=== PATIENT | female | born 1990 | race Two or more races ===

== ENCOUNTER 2025-04-09 08:00 | Emergency (ER) | payer OTHER ==
[~2025-04-09] VITALS: Ht 162.6 cm; Wt 65.8 kg
[2025-04-09] MEDS ORDERED: ESTRADIOL1 EAC1 TD (08:30)
[2025-04-09] MEDS ORDERED: DEXTROAMP-AMPHE30 MG PO (08:30)
[2025-04-09] MEDS ORDERED: RINGERS SOLUTION,LACTATED 1,000 ML IV STA (09:10)
[2025-04-09] MEDS ORDERED: PIPERACILLIN/TAZOBACTAM SODIUM 3.375 GM VIAL IV STA (09:11)
[2025-04-09] MEDS ORDERED: PIPERACILLIN/TAZOBACTAM SODIUM 3.375 GM VIAL IV ONE (09:21)
[2025-04-09] MEDS ORDERED: ONDANSETRON HCL 2 MG/ML VIAL ONE (09:26)
[2025-04-09] MEDS ORDERED: ONDANSETRON HCL 2 MG/ML VIAL IV STA (09:43)
[2025-04-09 09:46] LABS: BASO % 0.2 % (0.1-1.2); HEMATOCRIT 45.3 % (34.1-44.9); HEMOGLOBIN 15.8 g/dL (11.2-15.7); LYMPH # 1.94 (1.18-3.74); LYMPH % 18.8 % (19.3-53.1); MEAN CORPUSCULAR HEMOGLOBIN 29.4 pg (25.6-32.2); MONO # 0.62 (0.24-0.82); NEUT % 74.7 % (34.0-71.1); PLATELET COUNT 324 K/uL (163-369); RED BLOOD COUNT 5.37 M/uL (3.93-5.22); RED CELL DISTRIBUTION WIDTH 11.8 % (11.6-14.4)
[2025-04-09 10:15] LABS: ALBUMIN 4.2 gm/dL (3.4-5.0); BILIRUBIN TOTAL 0.75 mg/dL (0.3-1.2); BILIRUBIN,CONJUGATED 0.16 mg/dL (0.0-0.2); BILIRUBIN,UNCONJUGATED 0.59 mg/dL (0.0-0.6); CALCIUM 8.9 mg/dL (8.5-10.1); CREATININE SERUM 0.8 mg/dL (0.55-1.02); GFR 81.16; POTASSIUM 3.34 mEq/L (3.5-5.1); TOTAL PROTEIN 8.2 gm/dL (6.4-8.2)
[2025-04-09 10:58] LABS: URINE APPEARANCE Clear; URINE BILIRRUBIN Negative (NEGATIVE); URINE BLOOD Trace; URINE COLOR Yellow; URINE GLUCOSE Negative (NEGATIVE); URINE LEUKOCYTE Trace; URINE NITRATE Negative; URINE PROTEIN 30 (NEGATIVE)
[2025-04-09 11:04] LABS: URINE BACTERIA 4220.1 uL (0.0-1933); URINE EPITHELIAL CELLS 39.5 uL (0.0-38.8); URINE RBC 33.1 uL (0.0-20.8); URINE WBC 44.6 uL (0.0-23.2)
[2025-04-09 11:12] LABS: URINE CAST 0.44 uL (0.0-1.40); URINE KETONE 40 (NEGATIVE)
== END 2025-04-09 12:58 | disposition home or self-care (01) ==
LOC: ER 08:00
PROVIDERS: General Practice
DX: A05.9 Bacterial foodborne intoxication, unspecified (principal); R11.10 Vomiting, unspecified
CPT/HCPCS: 36415; 96365; 99282; J2405; J2543